=== PATIENT | male | born 1980 | race Caucasian/White ===

== ENCOUNTER 2020-02-06 20:30 | Emergency (ER) | payer MEDICAID ==
[~2020-02-06] VITALS: Ht 172.7 cm; Wt 86.2 kg
[2020-02-06 20:38] VITALS: BP 124/77; Ht 172.7 cm; Wt 86.2 kg
== END 2020-02-06 23:29 | disposition home or self-care (01) ==
LOC: ED 20:30
DX: S51.812A Laceration without foreign body of left forearm, initial encounter (principal); V98.8XXA Other specified transport accidents, initial encounter; Y93.I9 Activity, other involving external motion; Y92.828 Other wilderness area as the place of occurrence of the external cause; Y99.8 Other external cause status
CPT/HCPCS: J2001

== ENCOUNTER 2020-02-09 20:19 | Emergency (ER) | payer MEDICAID ==
[~2020-02-09] VITALS: Ht 172.7 cm; Wt 85.9 kg
[2020-02-09 21:56] VITALS: BP 119/61
== END 2020-02-09 21:56 | disposition home or self-care (01) ==
LOC: ED 20:19
DX: S51.812D Laceration without foreign body of left forearm, subsequent encounter (principal); L03.114 Cellulitis of left upper limb; X58.XXXD Exposure to other specified factors, subsequent encounter
CPT/HCPCS: 90715; J0696